=== PATIENT | male | born 1990 | race Caucasian/White ===

== ENCOUNTER 2016-12-13 14:03 | Emergency (ER) | payer SELFPAY ==
[~2016-12-13] VITALS: Ht 180.3 cm; Wt 110.0 kg
[~2016-12-13 14:03] MED LIST: OMPR20CCR PO
[2016-12-13 14:08] VITALS: BP 143/90; PULSE 102; RESP 15; TEMP 98.3; O2SAT 98
[2016-12-13] MEDS ORDERED: OMEP20TA PO (15:00)
[2016-12-13] MEDS ORDERED: predniSONE 20 MG TAB PO ONE (15:15)
[2016-12-13] MEDS ORDERED: RESP: ALBUTEROL 2.5 MG/IPRATROPIUM 0.5 MG NEB (SCH) INH ONE (15:15)
--- NOTE | 2016-12-13 15:15 | PD ---
HPI Chief Complaint: Cold / Flu Symptoms Time Seen by Provider: 15:10 Travel History International Travel<30 days: No Contact w/Intl Traveler<30days: No Traveled to known affect area: No History of Present Illness HPI 26-year-old male presents to the emergency department for evaluation of cold symptoms that ongoing for the past week and a half. Patient states this started with sinus pressure and drainage. He states that now he has cough, chest pain only with coughing, sore throat. No fevers or chills. He has no chronic medical problems and takes no prescribed medications. He reports intermittent wheezing. Patient is a current tobacco smoker. No other complaints. PFSH Past Medical History Asthma: Yes Gastrointestinal Disorders: Yes Musculoskeletal: Yes (Chronic back pain) Neurologic: Yes (Head injury) Immunizations Current: Yes Past Surgical History Tonsillectomy: Yes (and adenoids) Social History Alcohol Use: Yes (Weekends) Tobacco Use: Yes (Dips tobacco at work/smokes at home 10/10) Substance Use: No Allergies-Medications (Allergen,Severity, Reaction): Coded Allergies: No Known Allergies (Verified , 12/13/16) Reported Meds & Prescriptions Reported Meds & Active Scripts Active Reported Omeprazole 20 Mg Tab 20 Mg PO DAILY Review of Systems Except as stated in HPI: all other systems reviewed are Neg Physical Exam Narrative GENERAL: Well-developed well-nourished male patient, ambulatory. Afebrile. SKIN: Warm and dry. HEAD: Normocephalic. Atraumatic. ENT: Mucosa pink and moist. No erythema or exudates. No uvular edema. No uvular , palatal, or tonsillar deviation. Airway patent. Nasal turbinates appear normal without nasal blood, purulent drainage or septal hematoma. Bilateral tympanic membranes are clear without erythema or perforation. EYES: No scleral icterus. No injection or drainage. NECK: Supple, trachea midline. No JVD or lymphadenopathy. CARDIOVASCULAR: Regular rate and rhythm without murmurs, gallops, or rubs. RESPIRATORY: Breath sounds equal bilaterally. No accessory muscle use. Lungs sounds with slight expiratory wheezes noted throughout. GASTROINTESTINAL: Abdomen soft, non-tender, nondistended. MUSCULOSKELETAL: No cyanosis, or edema. Data Data Last Documented VS Vital Signs Date Time Temp Pulse Resp B/P Pulse Ox O2 Delivery O2 Flow Rate FiO2 12/13/16 14:08 98.3 102 15 143/90 98 Orders Chest, Single Ap (12/13/16 15:09) Prednisone (Deltasone) (12/13/16 15:15) Albuterol-Ipratropium Neb (Duoneb Neb) (12/13/16 15:15) [facility] Medical Decision Making Medical Screen Exam Complete: Yes Emergency Medical Condition: Yes Medical Record Reviewed: Yes Interpretation(s) Last Impressions Chest X-Ray 12/13/16 1509 Signed Impressions: Service Date/Time: December 15:10 - CONCLUSION: No acute disease. Sal Dumont MD Differential Diagnosis Viral URI versus bronchitis versus sinusitis versus pneumonia Narrative Course 26-year-old male presents to the emergency department for evaluation of cold symptoms for the past week and half. Physical exam reveals slight expiratory wheezes noted throughout. Patient is given DuoNeb 1, prednisone 60 mg by mouth. Chest x-ray is ordered and pending. Chest x-ray shows no acute disease. Patient is stable for discharge. He will be Discharged with a prescription for an albuterol inhaler, prednisone, azithromycin. He is encouraged to follow-up with a primary care physician. He verbalizes agreement and understanding to this plan. The patient was discharged in stable condition with instructions, including return instructions and follow up instructions. Diagnosis Primary Impression: Bronchitis Referrals: Primary Care Physician call for appointment Patient Instructions: Acute Bronchitis (ED), General Instructions Departure Forms: Tests/Procedures, Work Release Enter return to work date: Dec 16, 2016 Additional Instructions: Use albuterol inhaler as directed as needed for shortness of breath/wheezing. Take antibiotic, azithromycin, as directed until gone. Take prednisone as directed. Start this tomorrow. Follow-up with your primary care physician. Return to the emergency department for any acute worsening of symptoms. Med/Other Pt SpecificInfo: Prescription(s) given Scripts Azithromycin (Zithromax Z-Memo)250 Mg [id number] Mg PO DIRECTED #1 DSPK Ref 0 500 MG (2 tabs) day 1, then 1 tab days 2-5. Prov:Sheridan Lunsford 12/13/16 Prednisone 20 Mg Tab40 Mg PO DAILY 4 Days Ref 0 Prov:Sheridan Lunsford 12/13/16 Albuterol 8.5 GM Inh (Proair Hfa 8.5 GM Inh)90 Mcg/Act Aer1 Puff INH Q4H PRN ( SHORTNESS OF BREATH) #1 INHALER Ref 0 108 mcg/actuation Prov:Sheridan Lunsford 12/13/16 Disposition: 01 DISCHARGE HOME Condition: Stable Sheridan Lunsford Dec 13, 2016 15:15
--- NOTE | 2016-12-13 15:58 | RADRPT ---
EXAM DATE/TIME: 12/13/2016 15:10 [facility] COMPARISON: No previous studies available for comparison. INDICATIONS : Wheezing, Cough, Short of Breath, Chest Pain. MEDICAL HISTORY : Childhood Asthma. SURGICAL HISTORY : None. ENCOUNTER: Initial ACUITY: 1 week PAIN SCORE: 3/10 LOCATION: Bilateral chest FINDINGS: A single view of the chest demonstrates the lungs to be symmetrically aerated without evidence of mas s, infiltrate or effusion. The cardiomediastinal contours are unremarkable. Osseous structures are intact. CONCLUSION: No acute disease. Sal Dumont MD on December 13, 2016 at 15:57 Board Certified Radiologist. This report was verified electronically.
[2016-12-13] MEDS ORDERED: ZITHTAB PO (16:11)
[2016-12-13] MEDS ORDERED: ALBUAER3 INH (16:11)
[2016-12-13] MEDS ORDERED: PRED20 PO (16:11)
== END 2016-12-13 16:24 | disposition home or self-care (01) ==
LOC: NEPB 14:03
DX: J40 Bronchitis, not specified as acute or chronic (principal); Z72.0 Tobacco use
CPT/HCPCS: 71010; 94664; 99283; J7512